=== PATIENT | male | born 1995 | race Caucasian/White ===

== ENCOUNTER 2018-12-02 20:41 | Emergency (ER) | payer SELFPAY ==
[~2018-12-02] VITALS: Ht 170.2 cm; Wt 70.3 kg
[2018-12-02 21:35] VITALS: BP 85/67; Ht 170.2 cm; Wt 70.3 kg
== END 2018-12-03 00:02 | disposition home or self-care (01) ==
LOC: ED 20:41
DX: M54.5 Low back pain (principal); G89.29 Other chronic pain
CPT/HCPCS: J1885; Q0162